=== PATIENT | female | born 1940 | race Caucasian/White ===

== ENCOUNTER 2018-02-28 07:33 | Emergency (ER) | payer MEDICARE, OTHER, SELFPAY ==
[2018-02-28 07:34] VITALS: BP 154/95; PULSE 74; RESP 16; TEMP 36; O2SAT 97; BMI 26.9
[2018-02-28 07:41] VITALS: BP 155/84; PULSE 70; RESP 17; O2SAT 98
--- NOTE | 2018-02-28 07:58 | EKG12_ITS ---
Test Reason : CP Blood Pressure : / mmHG Vent. Rate : 070 BPM Atrial Rate : 070 BPM P-R Int : 226 ms QRS Dur : 092 ms QT Int : 442 ms P-R-T Axes : 042 -15 143 degrees QTc Int : 477 ms Atrial-paced rhythm with prolonged AV conduction Left ventricular hypertrophy with repolarization abnormality Inferior infarct , age undetermined Abnormal ECG Confirmed by KATHY ANDERSON, SAMINA ([id number]), general expeditor ADAM DASH ([id number] on 03/06/2018 2:35:21 PM Referred By: NICK Confirmed By:SAMINA CHAVEZ MD
--- NOTE | 2018-02-28 08:05 | RAD_ITS ---
STUDY: X-RAY CHEST REASON FOR EXAM: Female, 77 years old. Hypertension. TECHNIQUE: PA and lateral views of the chest. COMPARISON: Comparison is made with prior study dated November 04, 2013. FINDINGS: EKG electrodes are seen. Surgical clips are seen in the left axillary region. Stable mild increased linear markings at the left lung base suggestive of left basilar scarring. Hyperinflation. There is no demonstrated pleural abnormality. Sternal cerclage wires and vascular clips are present from a prior sternotomy and coronary artery bypass graft procedure (CABG). A left-sided dual-chamber pacemaker is seen. Normal mediastinum and marsha. Normal visualized pulmonary arteries. There is atherosclerotic calcification of the aortic arch with tortuosity. There is demineralization of the osseous structures. Normal visualized ribs, clavicles, and shoulders. There is no demonstrated abnormality of the visualized soft tissue structures of the upper abdomen. RAD/Chest PA and Lateral IMPRESSION: Hyperinflation. Stable mild scarring at the left lung base Electronically Signed: Arie Cardoso MD at 8:42 EDT Tel [phone], Service support ,
[2018-02-28 08:08] LABS: Absolute Lymphocyte Count 2.19 X10^3/ul (0.83-4.51); Absolute Neutrophil Count 2.5 X10^3/uL (2.0-7.7); Basophil# 0.03 X10^3/uL; Basophil% 0.6 % (0-1); Eosinophil# 0.08 X10^3/uL; Eosinophils% 1.5 % (0-5); Hematocrit 39.3 % (37-47); Hemoglobin 12.9 g/dl (12.0-15.0); Lymphocyte # 2.19 X10^3/ul (4.0); Lymphocyte % 41.7 % (19-41); Mean Corp Hgb Conc 32.8 g/gl (32-36); Mean Corpuscular Hgb 29.1 pg (27.0-32.0); Mean Corpuscular Volume 88.7 fL (81-99); Mean Platelet Vol. 8.7 fl (6.2-12.0); Monocyte# 0.41 X10^3/uL; Monocyte% 7.8 % (0-10); Neutrophil # 2.54 X10^3/uL (2.7-7.7); Neutrophil % 48.4 % (47-70); Platelet Count 234 K/mm3 (150-450); RBC Distribution Width CV 14.6 % (11.6-14.6); RBC Distribution Width SD 47.2 fl (35.1-43.9); Red Blood Count 4.43 M/mm3 (4.2-5.4); White Blood Count 5.3 K/mm3 (4.4-11.0)
[2018-02-28 08:10] LABS: POSITIVE COUNT NO; POSITIVE DIFFERENTIAL NO; POSITIVE MORPHOLOGY NO
[2018-02-28 08:21] LABS: Anion Gap 7 (5-15); BUN 11 mg/dL (7-18); BUN/Creat Ratio 12.4 RATIO (10-20); Calcium,Total 8.1 mg/dL (8.5-10.1); Chloride 107 mmol/L (98-107); Creatinine, Serum 0.89 mg/dL (0.55-1.02); EST Glomerular Filtration Rate 66 mL/min (>60); Est Glom Filt Rate - Afr Amer 79 mL/min (>60); Estimated Creatinine Clearance 50.57 ml/min; Glucose 136 mg/dL (74-106); Potassium 4.2 mmol/L (3.5-5.1); Sodium Level 137 mmol/L (136-145)
[2018-02-28 09:14] VITALS: BP 137/84; PULSE 70; RESP 15; O2SAT 93
[2018-02-28] MEDS: Acetaminophen 325 MG Tablet 650 MG PO (09:30)
--- NOTE | 2018-02-28 09:38 | ED.DCSUM_ITS ---
- ER Visit Summary Date of Service: 02/28/18 Chief Complaint: Chest and arm pain History of Present Illness: The patient is a 77 F who was seen by her PCP yesterday and started on Lexapro. She took her first dose last night. Patient states they are hoping to put her on Lexapro and take her off of Xanax. Patient states she woke at 2 AM this morning with a burning sensation that wrapped around both sides of her lower ribs and down her arms. She had normal strength in her arms but had a burning sensation. Patient is not sure if this is secondary to the Lexapro or may have been a panic attack. She is also concerned for cardiac etiology as she does have significant history of CABG ?2 with a cardiac stent placed. Physical Examination: Blood pressure is 155/84, otherwise vitals are normal. Patient sitting upright in bed no acute distress. Head neck examination is normal. Heart is regular rate and rhythm. Lung sounds are clear. No rashes noted around the lower ribs. Abdomen is soft nontender. Active bowel sounds are noted. Neuro exam reveals normal strength and sensation of the upper extremities. She has strong distal pulses. Test Results: EKG is paced at [address] change. CBC and chemistry studies are significant only for glucose of 136. Troponin is less than 0.02. X-ray reveals hyperinflation. There is stable mild scarring at left lung base. Emergency Department Course and Treatment: Patient has remained without significant complaint on the emergency room. I do not feel that this represents cardiac etiology. She will speak with her primary care physician regarding whether to continue Lexapro or to hold that and see if her symptoms resolved. Treatment Plan: [] Disposition: Discharge Impression: Atypical chest pain This note was generated with [employer] dictation software. It may contain incorrect words, spelling, and punctuation that were not noted in review of the chart prior to signing ED Disposition - Plan for ED Patient: Disposition: Home or Assisted Living Chief Complaint: Chest Pain Instructions: ED Chest Pain Atypical Unkn Cause Referrals: Boni Gamboa [Primary Care Provider] - 5-7 Days Additional Instructions: As we discussed, Call Dr Gamboa today to determine if he wants you to continue Lexapro.
--- NOTE | 2018-02-28 09:51 | ED.DEP ---
ED Disposition - Plan for ED Patient: Disposition: Home or Assisted Living Chief Complaint: Chest Pain Instructions: ED Chest Pain Atypical Unkn Cause Referrals: Boni Gamboa [Primary Care Provider] - 5-7 Days Additional Instructions: As we discussed, Call Dr Gamboa today to determine if he wants you to continue Lexapro.
[2018-02-28 09:58] VITALS: BP 148/85; PULSE 70; RESP 16; O2SAT 93
== END 2018-02-28 09:59 | disposition home or self-care (01) ==
PROVIDERS: Emergency Provider Emergency Medicine; Family Provider Family Medicine Geriatric Medicine; PCP Family Medicine Geriatric Medicine
DX: R07.89 Other chest pain (principal); M79.1 Myalgia; I10 Essential (primary) hypertension; E78.00 Pure hypercholesterolemia, unspecified; F41.9 Anxiety disorder, unspecified; I25.10 Atherosclerotic heart disease of native coronary artery without angina pectoris; Z85.3 Personal history of malignant neoplasm of breast; Z95.1 Presence of aortocoronary bypass graft; Z87.891 Personal history of nicotine dependence; Z85.038 Personal history of other malignant neoplasm of large intestine
CPT/HCPCS: 71046; 80048; 84484; 85025; 93005; 99284; A4216

== ENCOUNTER → 2019-11-06 12:25 | Outpatient (CLI) | payer MEDICARE, OTHER, SELFPAY ==
[2019-05-30 13:23] VITALS: BMI 31.1
--- NOTE | 2019-11-06 12:50 | BD_ITS ---
STUDY: DUAL ENERGY X-RAY ABSORPTIOMETRY / DXA REASON FOR EXAM: Female, 78 years old. The patient is postmenopausal. Loss of height. TECHNIQUE: Bone Mineral Density (BMD) measurements of lumbar spine and bilateral hips were obtained. COMPARISON: None. FINDINGS: Lumbar Spine (L1-L4): g/cm2 (1.207) / T-score (0.1) / Z-score (1.9) Findings are suggestive of normal bone density with a low fracture risk. Left Femur Total: g/cm2 (0.817) / T-score (-1.5) / Z-score (0.4) Left Femoral Neck: g/cm2 (0.73) / T-score (-1.8) / Z-score (0.3) Right Femur Total: g/cm2 (0.763) / T-score (-1.9) / Z-score (0.0) Right Femoral Neck: g/cm2 (0.778) / T-score (-1.9) / Z-score (0.2) BD/Dexa Bone Density Study IMPRESSION: The patient is considered osteopenic as outlined below according to World Frantz Organization (WHO) criteria with a moderate fracture risk. Reference Information: The T-score is the number of standard deviations above or below the standard which is normal for young adults at their peak bone mineral density. The World Health Organization (WHO) interprets the T-scores as follows: Above -1 Normal bone density Between -1 and -2.5 Osteopenia Equal to / or below -2.5 Osteoporosis As a practical clinical guideline, osteopenia may be graded as follows: Mild -1 through -1.5 Moderate -1.6 through -2.0 Severe -2.1 through -2.4 The Z-score is the number of standard deviations above or below age-matched controls. A Z-score of less than -1.5 would be considered abnormal. References: 1. NIH Osteoporosis and Related Bone Diseases http://www.osteo.org 2. International Society for Clinical Densitometry http://www.iscd.org 3. National Osteoporosis Foundation http://www.nof.org Electronically Signed: Arie Cardoso, at 13:37 EST , Service support ,
== END ==
PROVIDERS: Family Provider Family Medicine Geriatric Medicine; PCP Family Medicine Geriatric Medicine; Referring Provider Nurse Practitioner Family; Visit Provider Nurse Practitioner Family
DX: M81.0 Age-related osteoporosis without current pathological fracture (principal)
CPT/HCPCS: 77080

== ENCOUNTER → 2020-06-26 14:04 | Outpatient (CLI) | payer MEDICARE, OTHER, SELFPAY ==
[2020-06-04 13:42] VITALS: BMI 32.0
--- NOTE | 2020-06-26 14:17 | CT_ITS ---
STUDY: CT ABDOMEN AND PELVIS WITH AND WITHOUT CONTRAST REASON FOR EXAM: Female, 79 years old. UROGRAM, HEMATURIA-MICROSCOPIC,4 UTI''S SINCE Nov, HX OF BLADDER CA, SURG-PARTIAL COLECTOMY, APPY, BILAT OOPHRECTOMY, BILAT MASTECTOMY, HX-BREAST CA AND COLON CA RADIATION DOSAGE (If Supplied By Facility): CTDIvol = ( 19.73 ) mGy, DLP = ( 2494.8 ) mGycm TECHNIQUE: Transaxial images were obtained from the dome of the diaphragm to the symphysis pubis without oral contrast. IV 100mL Isovue-300 was administered. Sagittal and coronal images were reconstructed. Individualized dose optimization techniques were used for this CT. COMPARISON: None. FINDINGS: The visualized lung bases are unremarkable. There is evidence of prior CABG. Dual chamber pacemaker placement. There is decreased attenuation of the liver consistent with steatosis. Normal gallbladder and extrahepatic biliary system. Normal spleen. There is diffuse atrophy of the pancreas. Normal bilateral adrenal glands. Normal right kidney. Normal left kidney. There is a small hiatal hernia. Normal small intestine. There are multiple colonic diverticula consistent with diverticulosis. Surgical anastomosis seen at the rectosigmoid junction. The patient is status post appendectomy. There is diffuse atherosclerotic calcification of the abdominal aorta, without a demonstrated aneurysm. Normal inferior vena cava. Normal retroperitoneum. Normal urinary bladder. Normal abdominal wall. Grade 1 anterior listhesis of L4 on L5. Disc space narrowing and disc degeneration at the L4-L5 and L5-S1 levels. Facet joint osteoarthritis. CT/CT Abd/Pelvis W/WO Contrast IMPRESSION: Fatty infiltration of the liver. Surgical anastomosis at the rectosigmoid junction. Electronically Signed: Arie Cardoso, at 15:19 EDT , Service support ,
== END ==
PROVIDERS: PCP Family Medicine Geriatric Medicine; Referring Provider Urology; Visit Provider Urology
DX: R31.9 Hematuria, unspecified (principal)
CPT/HCPCS: 74178; Q9967

== ENCOUNTER → 2021-11-10 12:21 | Outpatient (CLI) | payer MEDICARE, OTHER, SELFPAY ==
--- NOTE | 2021-11-10 12:31 | BD_ITS ---
STUDY: DUAL ENERGY X-RAY ABSORPTIOMETRY / DXA REASON FOR EXAM: Female, 80 years old. OSTEO TECHNIQUE: Bone Mineral Density (BMD) measurements of lumbar spine and bilateral hips were obtained. COMPARISON: Comparison is made with prior study dated 11/06/2019. FINDINGS: Lumbar Spine (L1-L4): g/cm2 (0.881) / T-score (-1.5) / Z-score (1.2) Findings are suggestive of osteopenia with a low fracture risk. Left Femur Total: g/cm2 (0.775) / T-score (-1.4) / Z-score (0.7) Left Femoral Neck: g/cm2 (0.633) / T-score (-1.9) / Z-score (0.4) Right Femur Total: g/cm2 (0.682) / T-score (-2.1) / Z-score (0.0) Right Femoral Neck: g/cm2 (0.590) / T-score (-2.3) / Z-score (0.0) The T-Scores on the most recent prior examination were: Lumbar Spine (L1-L4): There has been worsening of bone density since the previous examination. Left Femur Total: which represents an improvement of 2.4%. Right Femur Total: which represents a worsening of 3.1%. BD/Dexa Bone Density Study IMPRESSION: The patient is considered osteopenic as outlined below according to World Frantz Organization (WHO) criteria with a high fracture risk. There has been worsening of bone density since the previous examination. Reference Information: The T-score is the number of standard deviations above or below the standard which is normal for young adults at their peak bone mineral density. The World Health Organization (WHO) interprets the T-scores as follows: Above -1 Normal bone density Between -1 and -2.5 Osteopenia Equal to / or below -2.5 Osteoporosis As a practical clinical guideline, osteopenia may be graded as follows: Mild -1 through -1.5 Moderate -1.6 through -2.0 Severe -2.1 through -2.4 The Z-score is the number of standard deviations above or below age-matched controls. A Z-score of less than -1.5 would be considered abnormal. References: 1. NIH Osteoporosis and Related Bone Diseases www osteo.org 2. International Society for Clinical Densitometry www iscd.org 3. National Osteoporosis Foundation www nof.org Electronically Signed: Arie Cardoso MD at 15:26 EST , Service support ,
== END ==
PROVIDERS: PCP Family Medicine Geriatric Medicine; Visit Provider Nurse Practitioner Family
DX: M81.0 Age-related osteoporosis without current pathological fracture (principal); C50.912 Malignant neoplasm of unspecified site of left female breast; Z17.0 Estrogen receptor positive status [ER+]; Z92.21 Personal history of antineoplastic chemotherapy
CPT/HCPCS: 77080